=== PATIENT | female | born 1960 | race African-American/Black ===

== ENCOUNTER 2017-05-13 15:33 | Emergency (ER) | payer OTHER ==
[~2017-05-13] VITALS: Ht 167.6 cm; Wt 81.2 kg
[~2017-05-13 15:33] MED LIST: ACETAMINOPHEN-1 EAC2 ORAL; ACYCLOVIR400 MG ORAL; ALBUTEROL SULF8.5 GM INH; AMITRIPTYLINE H10 MG ORAL; ATIVAN1 MG ORAL; ATORVASTATIN CA10 MG ORAL; CLINDAMYCIN HC150 MG ORAL; IBUPROFEN600 MG ORAL; LEVAQUIN500 MG ORAL; LISINOPRIL10 MG ORAL; LISINOPRIL20 MG ORAL; LYRICA75 M1 ORAL; NAPROXEN SODIU550 M1 ORAL; NORCO 10/3251 EA ORAL; NORCO 5-325 TA1 EACH ORAL; PERCOCET 5-3251 EACH ORAL; PREDNISONE20 MG ORAL; TRAMADOL HCL50 MG ORAL; WELLBUTRIN SR200 MG ORAL
[2017-05-13 15:55] VITALS: BP 108/71
[2017-05-13] MEDS ORDERED: Norco 5mg/325mg tab ORAL ONE (16:30)
--- NOTE | 2017-05-13 17:04 | Emergency Room Report ---
History of Present Illness General Chief Complaint: Head Injury Source: Patient, Medical Record Present Illness HPI 56YOF walk-in with pain to left forehead after accidentally getting knocked in head with green coffee blender that fell out of shelf when she was reaching for it. Denies LOC. Not on ASA, AC Denies nausea/vomiting, blurry vision, dizziness History of Fibromyalgia Allergies: Coded Allergies: AMOXICILLIN (Verified Allergy, Mild, Hives, 03/31/13) ERYTHROMYCIN LACTOBIONATE (Verified Allergy, Mild, Hallucinations, 03/31/13 ) Patient History Past Medical History: other - fibromyalgia Past Surgical History: none Pertinent Family History: none Social History: Denies: alcohol use, drug use, smoking Now: No Immunizations: UTD Reviewed Nursing Documentation: PMH: Agreed, PSxH: Agreed Nursing Documentation-PMH Past Medical History: No History, Except For Hx Hypertension: Yes - left foot injury Hx Pacemaker: No Hx Asthma: No Hx COPD: Yes Hx Diabetes: No Hx Cancer: No Hx Gastrointestinal Problems: No Hx Dialysis: No Hx Neurological Problems: Yes - fibromyagia Hx Cerebrovascular Accident: No Hx Seizures: No Review of Systems All Other Systems: negative except mentioned in HPI Physical Exam Vital Signs Date Time Temp Pulse Resp B/P Pulse Ox O2 Delivery O2 Flow Rate FiO2 05/13/17 15:45 98.4 80 16 108/71 100 Room Air Sp02 EP Interpretation: reviewed, normal General Appearance: normal inspection, well appearing, no apparent distress, alert, GCS 15, non-toxic Head: normocephalic, other - Small abrasion to lateral aspect of left eyebrow Eyes: bilateral eye EOMI, bilateral eye PERRL ENT: normal ENT inspection, hearing grossly normal, normal voice Neck: normal inspection, full range of motion, supple, no bony tend Respiratory: normal inspection, lungs clear, normal breath sounds, no respiratory distress, no retraction, no wheezing Cardiovascular #1: regular rate, rhythm, no edema Gastrointestinal: normal inspection, normal bowel sounds, non tender, soft, no guarding, no hernia Genitourinary: no CVA tenderness Musculoskeletal: normal inspection, back normal, normal range of motion, Trent' s Sign negative Neurologic: normal inspection, alert, oriented x3, responsive, home service consultant III-XII nml as tested, motor strength/tone normal, speech normal Skin: normal inspection, normal color, no rash Medical Decision Making Diagnostic Impression: Primary Impression: Headache Qualified Codes: R51 - Headache Additional Impression: Acute head injury Qualified Codes: S09.90XA - Unspecified injury of head, initial encounter ER Course Minor head injury after accidental head trauma - VSS. Afebrile. - Minor abrasion to left forehead - CT head negative for ICH - Not on ASA, AC - Analgesia given Advised PMD followup Last Vital Signs Date Time Temp Pulse Resp B/P Pulse Ox O2 Delivery O2 Flow Rate FiO2 05/13/17 15:55 98.4 80 16 108/71 100 Room Air Status: improved Disposition: HOME, SELF-CARE Condition: Improved Patient Instructions: Concussion, Adult, [id number] Additional Instructions: - Take only over the counter tylenol or your home pain meds for Fibromyalgia. No ibuprofen or motrin - Follow up with your primary care doctor if persistent headache, nausdea/ dizziness for neurology referral if needed CRUZITO ELLIOTT M.D. May 13, 2017 17:04
[2017-05-13 17:13] VITALS: BP 118/79
--- NOTE | 2017-05-14 09:53 | Diagnostic Imaging Report ---
Indication: Head injury this afternoon, pain numbness and left-sided head face and upper extremity Technique: Continuous helical CT scanning of the head was performed without intravenous contrast material. Axial and coronal 5 mm sections were generated. Radiation dose was minimized using automated exposure control Dose: Total Dose Length Product - DLP [address] Dose Index - CTDIvol(s) 70.38 mGy. Comparison: 12/06/2015 at Findings: The ventricular system is normal in size and configuration. There is no shift of midline structures. No abnormal extra-axial fluid collections are noted. There is no evidence of intracerebral bleeding. No other abnormal high or low density areas are noted within the brain. Unusual appearance to the left mandibular head, stable. Impression: Normal CT scan of the head without contrast material. This agrees with the preliminary interpretation provided overnight by Dr. Wood The CT scanner at [facility] is accredited by the [employer] and the scans are performed using protocols designed to limit radiation exposure to as low as reasonably achievable to attain images of sufficient resolution adequate for diagnostic evaluation.
== END 2017-05-13 17:23 | disposition home or self-care (01) ==
LOC: EMR 17:18
DX: R51 Headache (principal); S09.8XXA Other specified injuries of head, initial encounter; S00.212A Abrasion of left eyelid and periocular area, initial encounter; W20.8XXA Other cause of strike by thrown, projected or falling object, initial encounter; Y92.009 Unspecified place in unspecified non-institutional (private) residence as the place of occurrence of the external cause; I10 Essential (primary) hypertension; J44.9 Chronic obstructive pulmonary disease, unspecified; M79.7 Fibromyalgia
CPT/HCPCS: 70450; 99284

== ENCOUNTER 2017-10-28 17:18 | Emergency (ER) | payer OTHER ==
[~2017-10-28] VITALS: Ht 167.6 cm; Wt 77.1 kg
[2017-10-28] MEDS ORDERED: BUPROPION XL300 MG ORAL (17:34)
[2017-10-28] MEDS ORDERED: ATORVASTATIN CA40 MG ORAL (17:34)
[2017-10-28 18:07] LABS: APPEARANCE,URINE CLOUDY; KETONES,URINE NEGATIVE (NEGATIVE); LEUKOCYTE ESTERASE ,URINE 1+ (NEGATIVE); NITRITE,URINE NEGATIVE (NEGATIVE); PH,URINE 5 (4.5-8.0); PROTEIN,URINE 1+ (NEGATIVE); UROBILINOGEN,URINE 1 MG/DL (0.0-1.0)
--- NOTE | 2017-10-28 18:16 | Emergency Room Report ---
History of Present Illness General Chief Complaint: Vaginal Source: Patient Present Illness HPI 57-year-old female presents to the emergency department complaining of 7/10 in severity lower uterine cramping in addition to malodorous vaginal discharge x3 days. Patient denies nausea, vomiting, bleeding, swollen tender lymph nodes, genital lesions or joint pains. Patient reports intermittent unprotected intercourse with the same partner once every few months. Patient denies flulike symptoms, denies recent antibiotic use. Patient does report history of uterine fibroids for which she did have a myomectomy performed in 2004. Patient states she no longer has periods due to menopause. Patient denies constipation, diarrhea or abdominal tenderness. Patient reports urinary frequency, she denies dysuria or hematuria. Allergies: Coded Allergies: AMOXICILLIN (Verified Allergy, Mild, Hives, 03/31/13) ERYTHROMYCIN LACTOBIONATE (Verified Allergy, Mild, Hallucinations, 03/31/13 ) Patient History Past Medical History: see triage record, other - fibroids, and fibromyalgia Past Surgical History: none Pertinent Family History: none Now: No Immunizations: UTD Reviewed Nursing Documentation: PMH: Agreed, PSxH: Agreed Nursing Documentation-PMH Hx Hypertension: Yes - left foot injury Hx Pacemaker: No Hx Asthma: No Hx COPD: Yes Hx Diabetes: No Hx Cancer: No Hx Gastrointestinal Problems: No Hx Dialysis: No Hx Neurological Problems: Yes - fibromyagia Hx Cerebrovascular Accident: No Hx Seizures: No Review of Systems All Other Systems: negative except mentioned in HPI Physical Exam Vital Signs Date Time Temp Pulse Resp B/P (MAP) Pulse Ox O2 Delivery O2 Flow Rate FiO2 10/28/17 17:28 97.7 98 16 129/82 99 Room Air Sp02 EP Interpretation: reviewed, normal General Appearance: no apparent distress, alert, GCS 15, non-toxic Head: normocephalic, atraumatic ENT: hearing grossly normal, normal voice Neck: full range of motion Respiratory: lungs clear, normal breath sounds, speaking full sentences Cardiovascular #1: regular rate, rhythm Gastrointestinal: normal bowel sounds, non tender, soft, no guarding, no rebound Rectal: deferred Genitourinary: normal inspection, no CVA tenderness, ext genitalia/vag normal, urethra normal, other - thin milky white d/c noted in the vaginal vault on pelvic exam, collected for wet mount testing. negative for CMT, no friability of the cervix. no external lesions. Musculoskeletal: back normal, gait/station normal, normal range of motion, non- tender Neurologic: alert, oriented x3, responsive, motor strength/tone normal, sensory intact, cerebellar normal, normal gait, speech normal, no pronator, other - equal respiratory scientist strength bilaterally, negative pronator drift. Psychiatric: memory normal Skin: normal color, no rash, warm/dry, well hydrated Lymphatic: no adenopathy Medical Decision Making PA Attestation Dr. Burciaga is my supervising Physician whom patient management has been discussed with. Diagnostic Impression: Primary Impression: Vaginal discharge Additional Impression: UTI (urinary tract infection) Qualified Codes: N30.00 - Acute cystitis without hematuria ER Course 57-year-old female presents to the emergency department complaining of 7/10 in severity lower uterine cramping in addition to malodorous vaginal discharge x3 days. Patient denies nausea, vomiting, bleeding, swollen tender lymph nodes, genital lesions or joint pains. Patient reports intermittent unprotected intercourse with the same partner once every few months. Patient denies flulike symptoms, denies recent antibiotic use. Patient does report history of uterine fibroids for which she did have a myomectomy performed in 2004. Patient states she no longer has periods due to menopause. Patient denies constipation, diarrhea or abdominal tenderness. Patient reports urinary frequency, she denies dysuria or hematuria. Ddx considered but are not limited to UTi , STI, G & C, trichomonas, Vaginitis , cervicitis, bartholins gland cyst or cellulitis. Vital signs: are WNL, pt. is afebrile H&PE are most consistent with vaginitis, thin milky white d/c noted in the vaginal vault on pelvic exam, collected for wet mount testing. negative for CMT , no friability of the cervix. no external lesions. ORDERS: - UA: presence of bacteria with elevated inflammatory markers, consistent with an infection rather than contamination -Wet Mount: Many epithelial cells, a few white blood cells, no trichomoniasis no clue, few bacteria. No comment on yeast ED INTERVENTIONS: - DISCHARGE: At this time pt. is stable for d/c to home. Will provide printed patient care instructions, and any necessary prescriptions. Care plan and follow up instructions have been discussed with the patient prior to discharge. Labs Test 12/10/17 17:45 Urine Color Madie Urine Appearance Cloudy Urine pH 5 (4.5-8.0) Urine Specific Tangent 1.015 (1.005-1.035) Urine Protein 1+ (NEGATIVE) Urine Glucose (UA) Negative (NEGATIVE) Urine Ketones Negative (NEGATIVE) Urine Occult Blood 1+ (NEGATIVE) Urine Nitrite Negative (NEGATIVE) Urine Bilirubin Negative (NEGATIVE) Urine Ictotest Negative Urine Urobilinogen 1 MG/DL (0.0-1.0) Urine Leukocyte Esterase 1+ (NEGATIVE) Urine RBC 2-4 /HPF (0 - 2) Urine WBC 5-10 /HPF (0 - 2) Urine Squamous Epithelial Cells Many /LPF (NONE/OCC) Urine Bacteria Few /HPF (NONE) Last Vital Signs Date Time Temp Pulse Resp B/P (MAP) Pulse Ox O2 Delivery O2 Flow Rate FiO2 10/28/17 17:28 97.7 98 16 129/82 99 Room Air Disposition: HOME, SELF-CARE Condition: Stable Scripts Nitrofurantoin Monohyd/M-Cryst* (MACROBID 100 MG*) 100 Mg Capsule 100 MG ORAL EVERY 12 HOURS for 5 Days, #10 CAP Prov: Janny Pritchett 10/28/17 Referrals: [facility],REFERRING (PCP) Patient Instructions: Atrophic Vaginitis, [id number], Urinary Tract Infection , Oifw-ff-Ebsk, Vaginitis, Hsog-qm-Ckkw Additional Instructions: Take medications as directed. Follow up with a Primary Care Provider in 3-5 days, even if your symptoms have resolved. --Please review list of primary care clinics, if you do not already have a primary care provider Return sooner to ED if new symptoms occur, or current symptoms become worse. - Please note that this Emergency Department Report was dictated using [employer] technology software, occasionally this can lead to erroneous entry secondary to interpretation by the dictation equipment. Janny Pritchett Oct 28, 2017 18:16
[2017-10-28 18:36] LABS: BACTERIA,URINE FEW /HPF; ICTOTEST NEGATIVE; SQUAMOUS EPITHELIAL CELL,UR MANY /LPF (NONE/OCC)
[2017-10-28 18:42] VITALS: BP 129/82
[2017-10-28] MEDS ORDERED: NITROFURANTOIN100 M2 ORAL (19:16)
[2017-10-28 19:23] VITALS: BP 129/82
== END 2017-10-28 19:23 | disposition home or self-care (01) ==
LOC: EMR 17:44
DX: N89.8 Other specified noninflammatory disorders of vagina (principal); N39.0 Urinary tract infection, site not specified; J44.9 Chronic obstructive pulmonary disease, unspecified; Z88.0 Allergy status to penicillin; M79.7 Fibromyalgia
CPT/HCPCS: 81003; 87210; 99283

== ENCOUNTER 2018-03-03 22:49 | Emergency (ER) | payer OTHER ==
[~2018-03-03] VITALS: Ht 167.6 cm; Wt 73.5 kg
[~2018-03-03 22:49] MED LIST changes: +ATORVASTATIN CA40 MG ORAL; +BUPROPION XL300 MG ORAL; +NITROFURANTOIN100 M2 ORAL
--- NOTE | 2018-03-03 23:18 | Emergency Room Report ---
History of Present Illness General Chief Complaint: Abdominal Pain Source: Patient, Medical Record Present Illness HPI 57-year-old female with hypertension, recent diagnosis of ulcerative colitis, p/ w abdominal pain 3 weeks, worse today. Patient states pain localized to right lower quadrant, states that she had a CAT scan, colonoscopy performed, was told that she has an ulcerated mass on her right side, pain is, non radiating, burning and sharp in nature, intermittent. No relieving or exacerbating factors. No vomiting had one episode of nonbloody diarrhea today. Denies fever, chills. Never had a history of obstruction, only surgery is a myomectomy Allergies: Coded Allergies: AMOXICILLIN (Verified Allergy, Mild, Hives, 03/31/13) ERYTHROMYCIN LACTOBIONATE (Verified Allergy, Mild, Hallucinations, 03/31/13 ) CIPROFLOXACIN (Verified Allergy, Unknown, 03/03/18) ERYTHROMYCIN BASE (Verified Allergy, Unknown, 03/03/18) Patient History Past Medical History: see triage record Past Surgical History: none Pertinent Family History: none Now: No Reviewed Nursing Documentation: PMH: Agreed; PSxH: Agreed Nursing Documentation-PMH Past Medical History: No History, Except For Hx Hypertension: Yes - left foot injury Hx Pacemaker: No Hx Asthma: No Hx COPD: Yes Hx Diabetes: No Hx Cancer: No Hx Gastrointestinal Problems: No Hx Dialysis: No Hx Neurological Problems: Yes - fibromyagia Hx Cerebrovascular Accident: No Hx Seizures: No Review of Systems All Other Systems: negative except mentioned in HPI Physical Exam Vital Signs Date Time Temp Pulse Resp B/P (MAP) Pulse Ox O2 Delivery O2 Flow Rate FiO2 03/03/18 22:54 98.1 87 17 122/76 97 Room Air 98.1 Sp02 EP Interpretation: reviewed, normal General Appearance: alert, GCS 15, non-toxic, moderate distress Head: normocephalic, atraumatic Eyes: bilateral eye normal inspection, bilateral eye PERRL, bilateral eye EOMI ENT: normal ENT inspection, normal pharynx, normal voice, moist mucus membranes Neck: normal inspection, full range of motion, supple Respiratory: normal inspection, lungs clear, normal breath sounds, no respiratory distress, no retraction, no wheezing, speaking full sentences, chest symmetrical Cardiovascular #1: normal inspection, regular rate, rhythm, no edema, normal capillary refill Cardiovascular #2: 2+ radial (R), 2+ radial (L) Gastrointestinal: other - Right lower quadrant tenderness, voluntary guarding, no rebound, no rigidity, normal bowel sounds Musculoskeletal: normal inspection, back normal, normal range of motion, non- tender Neurologic: normal inspection, alert, oriented x3, responsive, motor strength/ tone normal, sensory intact, normal gait, speech normal Psychiatric: normal inspection, judgement/insight normal, memory normal Skin: normal inspection, normal color, no rash, warm/dry, well hydrated, normal turgor Medical Decision Making Diagnostic Impression: Primary Impression: Abdominal pain ER Course 57-year-old female with abdominal pain history of ulcerative colitis Differential Diagnosis: Exacerbation of ulcerative colitis, Gastritis, gastroenteritis, cholecystitis, appendicitis, diverticulitis, SBO, mesenteric ischemia, cardiac, UTI/pyelo Plan: Basic labs, ua, ekg Pepcid, maalox, pain control, IVF CT abdopelvis ER course: labs unremarkable CT unremarkable repeat abd exambenign patient asking for food feeling much better Disposition: pt dc homew tih GI follow uip Strict return precautions discussed with patient such as fever, chills, worsening/severe abdominal pain, nausea, vomiting, black or bloody stools, which may indicate severe illness. Patient verbalizes understanding and agrees with plan. Please note that this Emergency Department Report was dictated using [employer] buffing machine operator technology software, occasionally this can lead to erroneous entry secondary to interpretation by the dictation equipment EKG Diagnostic Results EP Interpretation: Yes Rate: normal Rhythm: NSR ST Segments: No acute changes ASA given to patient: No Rhythm Strip EP Interpretation: Yes Rate: 70 Rhythm: NSR, no PVCs, no ectopy Chest X-ray CXR: Ordered: Yes 1 view Indication: Pain EP interpretation: Yes Interpretation: No consolidation, no effusion, no PTX, no acute cardiopulmonary disease, no free air Impression: No acute disease Electronically signed by Kale Weller MD Laboratory Tests Test 03/03/18 23:05 White Blood Count 5.5 K/UL (4.8-10.8) Red Blood Count 4.57 M/UL (4.20-5.40) Hemoglobin 14.5 G/DL (12.0-16.0) Hematocrit 40.8 % (37.0-47.0) Mean Corpuscular Volume 89 FL (80-99) Mean Corpuscular Hemoglobin 31.7 PG (27.0-31.0) H Mean Corpuscular Hemoglobin Concent 35.5 G/DL (32.0-36.0) Red Cell Distribution Width 12.0 % (11.6-14.8) Platelet Count 312 K/UL (150-450) Mean Platelet Volume 6.3 FL (6.5-10.1) L Neutrophils (%) (Auto) 52.0 % (45.0-75.0) Lymphocytes (%) (Auto) 40.0 % (20.0-45.0) Monocytes (%) (Auto) 6.5 % (1.0-10.0) Eosinophils (%) (Auto) 0.4 % (0.0-3.0) Basophils (%) (Auto) 1.2 % (0.0-2.0) Sodium Level 142 MMOL/L (136-145) Potassium Level 3.5 MMOL/L (3.5-5.1) Chloride Level 105 MMOL/L (98-107) Carbon Dioxide Level 25 MMOL/L (21-32) Anion Gap 12 mmol/L (5-15) Blood Urea Nitrogen 13 mg/dL (7-18) Creatinine 0.8 MG/DL (0.55-1.30) Estimate Glomerular Filtration Rate > 60 mL/min (>60) Glucose Level 104 MG/DL (74-106) Lactic Acid Level 2.30 mmol/L (0.66-2.22) H Calcium Level 9.9 MG/DL (8.5-10.1) Total Bilirubin 0.3 MG/DL (0.2-1.0) Aspartate Amino Transferase (AST) 16 U/L (15-37) Alanine Aminotransferase (ALT) 13 U/L (12-78) Alkaline Phosphatase 107 U/L (46-116) Troponin I 0.001 ng/mL (0.000-0.056) Total Protein 8.3 G/DL (6.4-8.2) H Albumin 3.6 G/DL (3.4-5.0) Globulin 4.7 g/dL Albumin/Globulin Ratio 0.8 (1.0-2.7) L Lipase 143 U/L (73-393) CT/MRI/US Diagnostic Results CT/MRI/US Diagnostic Results : Imaging Test Ordered: CT ABDO PELVIS Impression CT ABDOMEN & PELVIS With Contrast: Fluid levels in the colon without obstruction or definite wall thickening. No solid organ abnormality. No ascites or free air. Normal appendix Last Vital Signs Date Time Temp Pulse Resp B/P (MAP) Pulse Ox O2 Delivery O2 Flow Rate FiO2 03/03/18 22:54 98.1 87 17 122/76 97 Room Air 98.1 Disposition: HOME, SELF-CARE Condition: Improved Referrals: [facility],REFERRING (PCP) Kale Weller M.D. Mar 03, 2018 23:18
[2018-03-03] MEDS ORDERED: Morphine Sulfate 4mg/ml Inj IVP ONE (23:30)
[2018-03-03 23:47] LABS: BASOPHILS % (AUTO) 1.2 % (0.0-2.0); EOSINOPHILS % (AUTO) 0.4 % (0.0-3.0); HEMATOCRIT 40.8 % (37.0-47.0); HEMOGLOBIN 14.5 G/DL (12.0-16.0); MEAN CORPUSCULAR VOLUME 89 FL (80-99); MONOCYTES % (AUTO) 6.5 % (1.0-10.0); PLATELET COUNT 312 K/UL (150-450); RED BLOOD COUNT 4.57 M/UL (4.20-5.40); WHITE BLOOD COUNT 5.5 K/UL (4.8-10.8)
[2018-03-04 00:09] LABS: ANION GAP 12 mmol/L (5-15); BLOOD UREA NITROGEN 13 mg/dL (7-18); CALCIUM 9.9 MG/DL (8.5-10.1); CARBON DIOXIDE 25 MMOL/L (21-32); CHLORIDE 105 MMOL/L (98-107); CREATININE 0.8 MG/DL (0.55-1.30); POTASSIUM 3.5 MMOL/L (3.5-5.1); SODIUM 142 MMOL/L (136-145)
[2018-03-04 00:14] LABS: ALANINE AMINOTRANSFERASE 13 U/L (12-78); ALBUMIN 3.6 G/DL (3.4-5.0); ALBUMIN/GLOBULIN RATIO 0.8 (1.0-2.7); ALKALINE PHOSPHATASE 107 U/L (46-116); ASPARTATE AMINO TRANSFERASE 16 U/L (15-37); BILIRUBIN,TOTAL 0.3 MG/DL (0.2-1.0)
[2018-03-04] MEDS ORDERED: Morphine Sulfate 4mg/ml Inj IVP ONE (01:45)
[2018-03-04 01:50] VITALS: BP 131/75
[2018-03-04] MEDS ORDERED: AMLODIPINE BESY10 MG ORAL (02:34)
[2018-03-04] MEDS ORDERED: PROGESTERONE100 MG PO (02:36)
[2018-03-04] MEDS ORDERED: NORCO 10-325 T1 EACH ORAL (02:36)
[2018-03-04] MEDS ORDERED: VENTOLIN HFA18 GM INH (02:36)
[2018-03-04] MEDS ORDERED: SAVELLA100 MG PO (02:36)
[2018-03-04] MEDS ORDERED: ALBUTEROL2.5 MG/3 M INH (02:37)
[2018-03-04] MEDS ORDERED: TIZANIDINE HCL4 MG ORAL (02:42)
[2018-03-04] MEDS ORDERED: PREMARIN0.45 MG ORAL (02:42)
[2018-03-04 03:04] VITALS: BP 107/60
[2018-03-04 03:07] VITALS: BP 107/60
--- NOTE | 2018-03-04 09:09 | Diagnostic Imaging Report ---
Indication: Chest pain Technique: One view of the chest Comparison: 12/06/2015 Findings: Lungs and pleural spaces are clear. Heart size is normal. No significant interim change Impression: No acute process
--- NOTE | 2018-03-04 09:19 | Diagnostic Imaging Report ---
Clinical Indication: Abdominal pain x3 weeks. History of ulcerative colitis Technique: No oral contrast utilized, per emergency room physician request IV administration nonionic contrast. Venous phase spiral acquisition obtained through the abdomen and pelvis. Multiplanar reconstructions were generated. Total dose length product 883.7 mGycm. CTDIvol(s) 16.38 mGy. Dose reduction achieved using automated exposure control Comparison: none Findings: The appendix is normal. There is no evidence of diverticulosis or diverticulitis. There is equivocal minimal wall thickening of ascending colon, and fluid is seen within the ascending colon.. No small bowel distention. No free or loculated intraperitoneal gas or fluid. The distal esophagus, stomach, duodenum are unremarkable. The liver, gallbladder, bile ducts, pancreas, spleen, adrenals, kidneys are all unremarkable. No retroperitoneal or mesenteric mass or adenopathy. No pelvic mass or adenopathy. Uterus and adnexal structures are unremarkable. Included lung bases are clear. The bones are unremarkable. Impression: Essentially unremarkable exam. Equivocal mild ascending colon wall thickening and fluid within the colon could indicate mild colitis changes. This agrees with the preliminary interpretation provided overnight by [facility] service. The CT scanner at [facility] is accredited by the [employer] and the scans are performed using protocols designed to limit radiation exposure to as low as reasonably achievable to attain images of sufficient resolution adequate for diagnostic evaluation.
--- NOTE | 2018-03-04 21:40 | Cardiology Report ---
APPROVED REPORT EKG Measurement Heart [id number] Normal sinus rhythm Low voltage QRS Borderline ECG
== END 2018-03-04 03:07 | disposition other institution (70) ==
LOC: EDBD 22:49 → EDUNIT# 22:49 → EMR 23:00 → CANBEDREQ 03-04 03:10
DX: R10.9 Unspecified abdominal pain (principal); J44.9 Chronic obstructive pulmonary disease, unspecified; M79.7 Fibromyalgia; Z88.1 Allergy status to other antibiotic agents
CPT/HCPCS: 36415; 71045; 74177; 80053; 83605; 83690; 84484; 85025; 87040; 93005; 96374; 96375; 99284; J2270; Q9967